=== PATIENT | female | born 1980 | race Hispanic/Latino ===

== ENCOUNTER 2025-02-16 01:21 | Emergency (ER) | payer SELFPAY ==
[~2025-02-16] VITALS: Ht 149.9 cm; Wt 65.3 kg
[2025-02-16 01:25] VITALS: PULSE 71; RESP 18; TEMP 97.8
[2025-02-16] MEDS ORDERED: MEDROL4 M2 PO (01:55)
[2025-02-16] MEDS ORDERED: AZITHROMYCIN250 MG PO (01:55)
[2025-02-16] MEDS: KETOROLAC TROMETHAMINE 30 MG/ML VIAL IM STA (02:16)
[2025-02-16 02:26] VITALS: BP 139/89; RESP 17; TEMP 97.8; O2SAT 99
== END 2025-02-16 02:23 | disposition home or self-care (01) ==
LOC: FSED 01:37
DX: H66.91 Otitis media, unspecified, right ear (principal); E11.9 Type 2 diabetes mellitus without complications; Z11.52 Encounter for screening for COVID-19
CPT/HCPCS: 0223U; 87400; 96372; 99283; J1885